=== PATIENT | female | born 1950 | race Caucasian/White ===

== ENCOUNTER 2021-07-05 09:59 | Outpatient (CLI) | payer MEDICARE, BC ==
[2021-07-05 11:49] LABS: Anion Gap 15 mmol/L (10-20); BUN (Urea Nitrogen) 12 mg/dL (9.8-20.1); Calc. Creatinine Clearance 0 mL/min (70-130); Calcium 9.8 mg/dL (7.8-10.44); Carbon Dioxide 21 mmol/L (23-31); Chloride 110 mmol/L (98-107); Glucose 103 mg/dL (80-115); Sodium 142 mmol/L (136-145)
[2021-07-05 18:51] LABS: SARS-CoV-2 PCR by NAA Not Detected (NotDetected)
== END 2021-07-05 10:00 | disposition home or self-care (01) ==
LOC: LABBT 09:59
PROVIDERS: ATTEND Urology
DX: Z01.818 Encounter for other preprocedural examination (principal); Z20.822 Contact with and (suspected) exposure to COVID-19
CPT/HCPCS: 80048; 93005; U0003; U0005; 93010

== ENCOUNTER 2021-07-06 22:20 | Emergency (ER) | payer MEDICARE, BC ==
[2021-07-07 02:27] LABS: Bilirubin Negative (Negative); Blood, Urine Negative (Negative); Clarity Clear (Clear); Glucose, Urine (Dipstick) Normal (Negative); Ketone, Urine Negative (Negative); Leukocyte Negative Leu/uL (Negative); Nitrite Negative (Negative); Protein, Urine (Dipstick) Negative (Neg-Trace); Specific Gravity, Urine 1.021 (1.002-1.036); Urobilinogen Normal mg/dL (Less than 2); pH, Urine 6.5 (5.0-9.0)
[2021-07-07 03:41] LABS: #Basophils 0.1 thou/uL (0.0-0.2); #Lymphocytes 1.1 thou/uL (1.20-3.40); #Monocytes 0.8 thou/uL (0.11-0.59); #Neutrophils 5.4 thou/uL (1.40-6.50); %Basophils 0.8 % (0.0-1.0); %Eosinophils 0.5 % (0.0-10.0); %Lymphocytes 14.7 % (21.0-51.0); %Monocytes 10.8 % (0.0-10.0); %Neutrophils 73.2 % (42.0-75.0); Hemoglobin 14.3 g/dL (12.0-16.0); Mean Corpuscular HGB CONC 33.8 g/dL (32.0-36.0); Mean Corpuscular Hemoglobin 32.1 pg (27.0-31.0); Mean Corpuscular Volume 94.9 fL (78.0-98.0); Mean Platelet Volume 9.9 fL (7.4-10.4); Platelet Count 235 thou/uL (130-400); RBC Distribution Width 11.5 % (11.5-14.5); Red Blood Cell (RBC) Count 4.47 mill/uL (4.20-5.40); White Blood Cell (WBC) Count 7.4 thou/uL (4.8-10.8)
[2021-07-07 03:49] LABS: ALT (SGPT) 20 U/L (8-55); AST (SGOT) 19 U/L (5-34); Albumin 4.5 g/dL (3.4-4.8); Alkaline Phosphatase 101 U/L (40-110); BUN (Urea Nitrogen) 13 mg/dL (9.8-20.1); Bilirubin, Total 0.4 mg/dL (0.2-1.2); Calc. Creatinine Clearance 0 mL/min (70-130); Calcium 10.1 mg/dL (7.8-10.44); Carbon Dioxide 21 mmol/L (23-31); Globulin 3.5 g/dL (2.4-3.5); Glucose 97 mg/dL (80-115); Lipase 26 U/L (8-78)
[2021-07-07 03:59] LABS: Anion Gap 15 mmol/L (10-20); Chloride 107 mmol/L (98-107); Potassium 4.1 mmol/L (3.5-5.1); Sodium 138 mmol/L (136-145)
[2021-07-07] MEDS ORDERED: Mag-Al 1200 mg/1200 mg/30 ML UDCUP ONE (06:46)
[2021-07-07] MEDS ORDERED: Lidocaine Viscous Sol 2% 15 ml UD Cup ONE (06:46)
[2021-07-07] MEDS ORDERED: Iopamidol 370 76% 100 ML VIAL ONE (09:46)
== END 2021-07-07 10:01 | disposition home or self-care (01) ==
LOC: ERS 22:20
DX: K44.9 Diaphragmatic hernia without obstruction or gangrene (principal); K21.9 Gastro-esophageal reflux disease without esophagitis; J45.909 Unspecified asthma, uncomplicated; Z79.899 Other long term (current) drug therapy
CPT/HCPCS: 36415; 74177; 80053; 81003; 83690; 85025; 87086; Q9967

== ENCOUNTER 2021-07-10 08:19 | Day surgery (SDC) | payer MEDICARE, BC ==
[2021-07-07 10:49] VITALS: BMI 35.0
[2021-07-10] MEDS ORDERED: ceFAZolin 2 GM/DEX 5% 100 ML BAG ONE (09:36)
[2021-07-10 10:33] LABS: Prothrombin Time 13.3 sec (12.0-14.7)
[2021-07-10 10:34] LABS: PTT 40.7 sec (22.9-36.1)
[2021-07-10] MEDS ORDERED: SUGAMMADEX SODIUM 200 MG/2 ML VIAL ONE (10:58)
[2021-07-10] MEDS ORDERED: Famotidine/PF 20 mg/2ml Vial ONE (10:58)
[2021-07-10] MEDS ORDERED: Fentanyl 100 MCG/2 ML VIAL ONE (10:58)
[2021-07-10] MEDS ORDERED: Lidocaine 1% PF 5 ML VIAL ONE (11:09)
[2021-07-10] MEDS ORDERED: Ondansetron PF 4 MG/2 ML Vial ONE (11:09)
[2021-07-10] MEDS ORDERED: Metoclopramide HCl 10 MG/2 ML VIAL ONE (11:09)
[2021-07-10] MEDS ORDERED: PROPOFOL 200 MG/20 ML VIAL ONE (11:09)
[2021-07-10] MEDS ORDERED: Succinylcholine 200 MG/10 ml SYRINGE FS ONE (11:09)
[2021-07-10] MEDS ORDERED: Promethazine HCl 25 MG/ML VIAL IVPB PRN (11:31)
[2021-07-10] MEDS ORDERED: Promethazine HCl 25 MG/ML VIAL IM PRN (11:31)
[2021-07-10] MEDS ORDERED: Ondansetron HCl/PF 4 MG/2 ML Vial IVP PRN (11:31)
[2021-07-10] MEDS ORDERED: Bicitra 30 ML UDCUP ONE (11:53)
[2021-07-10] MEDS ORDERED: Milk Of Magnesia 30 ML UDCUP PO SCH (12:45)
== END 2021-07-10 13:42 | disposition home or self-care (01) ==
LOC: SDC 08:19
PROVIDERS: ATTEND Urology
PROC: 0T7D8ZZ Dilation of Urethra, Via Natural or Artificial Opening Endoscopic (ICD-10-PCS; principal; 2021-07-10)
DX: N35.82 Other urethral stricture, female (principal); I10 Essential (primary) hypertension; I47.1 Supraventricular tachycardia; J45.909 Unspecified asthma, uncomplicated; K44.9 Diaphragmatic hernia without obstruction or gangrene; R25.1 Tremor, unspecified; E66.9 Obesity, unspecified; Z68.35 Body mass index [BMI] 35.0-35.9, adult; Z86.16 Personal history of COVID-19; Z79.2 Long term (current) use of antibiotics; Z79.899 Other long term (current) drug therapy; Z91.040 Latex allergy status
CPT/HCPCS: 85610; 85730; J2405; J2704; J2765; J3010; S0028

== ENCOUNTER 2022-08-02 10:54 | Outpatient (CLI) | payer MEDICARE, BC ==
[2022-08-02 12:08] LABS: #Monocytes 0.2 10x3/uL (0.0-1.1); #Neutrophils 9.1 10x3/uL (1.5-8.4); %Basophils 0.4 % (0.0-2.0); %Lymphocytes 4.6 % (18.0-47.0); %Monocytes 2.3 % (0.0-10.0); %Neutrophils 90.9 % (40.0-75.0); Hemoglobin 14.5 g/dL (12.0-15.5); Mean Corpuscular Hemoglobin 30.8 pg (27.0-33.0); Mean Corpuscular Volume 90.7 fl (81.6-98.3); Mean Platelet Volume 11.3 fl (7.4-10.4); Platelet Count 258 10x3/uL (150-450); RBC Distribution Width 13.1 % (11.5-14.5); Red Blood Cell (RBC) Count 4.71 10x6/uL (3.90-5.03)
[2022-08-02 12:25] LABS: Anion Gap 17 mmol/L (10-20); BUN (Urea Nitrogen) 14 mg/dL (9.8-20.1); Calc. Creatinine Clearance 0 mL/min (70-130); Calcium 9.6 mg/dL (7.8-10.44); Carbon Dioxide 20 mmol/L (23-31); Chloride 110 mmol/L (98-107); Estimated GFR 73; Glucose 127 mg/dL (83-110); Potassium 4.1 mmol/L (3.5-5.1); Sodium 143 mmol/L (136-145)
[2022-08-02 17:11] LABS: Hemoglobin A1c 5.3 % (4.0-6.0)
== END 2022-08-02 10:55 | disposition home or self-care (01) ==
LOC: LABBT 10:54
PROVIDERS: ATTEND Specialist
DX: Z01.818 Encounter for other preprocedural examination (principal); K44.9 Diaphragmatic hernia without obstruction or gangrene
CPT/HCPCS: 80048; 83036; 85025; 93005; 93010

== ENCOUNTER 2022-08-14 05:58 | Observation (INO) | payer MEDICARE, BC ==
[2022-08-13 13:20] VITALS: BMI 31.3
[2022-08-14] MEDS ORDERED: Ketorolac Tromethamine 30 MG/ML VIAL ONE ×2 (06:19→17:27)
[2022-08-14] MEDS ORDERED: Acetaminophen 500 MG TAB ONE (06:19)
[2022-08-14] MEDS ORDERED: Fentanyl 250 MCG/5 ML VIAL ONE (06:44)
[2022-08-14] MEDS ORDERED: Bupivacaine/Epinephrine 0.25% 30 ML VIAL ONE (07:10)
[2022-08-14] MEDS ORDERED: Promethazine HCl 25 MG/ML VIAL IM PRN ×2 (07:15→11:13)
[2022-08-14] MEDS ORDERED: HYDROmorphone 2 MG/ML VIAL SLOW IVP PRN (07:15)
[2022-08-14] MEDS ORDERED: Meperidine HCl/PF 25 MG/ML VIAL SLOW IVP PRN ×2 (07:15)
[2022-08-14] MEDS ORDERED: Ondansetron HCl/PF 4 MG/2 ML Vial IVP PRN (07:15)
[2022-08-14] MEDS ORDERED: Scopolamine 1.5 mg/72 hour Patch ONE (07:17)
[2022-08-14] MEDS ORDERED: Ipratropium/Albuterol 3 ML NEB ONE (07:17)
[2022-08-14] MEDS ORDERED: Albuterol HFA (OR) 200 PUFF INH ONE (07:19)
[2022-08-14] MEDS ORDERED: Sodium Chloride 0.9% 100 ML ONE (07:41)
[2022-08-14] MEDS ORDERED: CEFAZOLIN 2 GM VIAL ONE (07:41)
[2022-08-14] MEDS ORDERED: Ondansetron PF 4 MG/2 ML Vial ONE ×2 (07:56→14:34)
[2022-08-14] MEDS ORDERED: Rocuronium Bromide 10 MG/ML (10ML VIAL) ONE (07:56)
[2022-08-14] MEDS ORDERED: Succinylcholine Chloride 100 MG/5 ML SYRINGE FS ONE (07:56)
[2022-08-14] MEDS ORDERED: Lidocaine 1% PF 5 ML VIAL ONE (07:56)
[2022-08-14] MEDS ORDERED: NEOSTIGMINE 3 MG/3 ML SYR 3 MG/3 ML SYRINGE ONE (07:56)
[2022-08-14] MEDS ORDERED: PROPOFOL 200 MG/20 ML VIAL ONE (07:56)
[2022-08-14] MEDS ORDERED: diphenhydrAMINE 50 MG/ML VIAL ONE (07:56)
[2022-08-14] MEDS ORDERED: Glycopyrrolate 0.2 MG/ML 5 ML SYRINGE ONE (07:56)
[2022-08-14] MEDS ORDERED: Dexamethasone 20 MG/5 ML VIAL ONE (07:56)
[2022-08-14] MEDS ORDERED: Ipratropium/Albuterol 3 ML NEB NEB PRN ×2 (10:31→11:13)
[2022-08-14] MEDS ORDERED: Albuterol 200 PUFF (6.7GM INHALER) INH PRN (10:31)
[2022-08-14] MEDS ORDERED: Fentanyl 100 MCG/2 ML VIAL ONE (11:09)
[2022-08-14] MEDS ORDERED: Ondansetron PF 4 MG/2 ML Vial IVP PRN (11:13)
[2022-08-14] MEDS ORDERED: HYDROcodone/Acetaminophen 10/325 mg Tablet PO PRN (11:13)
[2022-08-14] MEDS ORDERED: Mag-Al 1200 mg/1200 mg/30 ML UDCUP PO PRN (11:13)
[2022-08-14] MEDS ORDERED: hydrALAZINE 20 MG/ML VIAL SLOW IVP PRN (11:13)
[2022-08-14] MEDS ORDERED: Calcium Carbonate 500 MG ChewTAB PO PRN (11:13)
[2022-08-14] MEDS ORDERED: Morphine 2 MG/ML VIAL SLOW IVP PRN (11:13)
[2022-08-14] MEDS ORDERED: Dextrose 5% in Water 1,000 ML IV PRN (11:13)
[2022-08-14] MEDS ORDERED: Morphine 4 MG/ML VIAL SLOW IVP PRN (11:13)
[2022-08-14] MEDS ORDERED: Dextrose 50% Abboject 50 ML SYRINGE SLOW IVP PRN (11:13)
[2022-08-14] MEDS: Ketorolac Tromethamine 30 MG/ML VIAL IVP SCH ×2 (17:29→17:30)
[2022-08-14] MEDS: Ipratropium/Albuterol 3 ML NEB NEB SCH ×2 (19:08→23:11)
[2022-08-14] MEDS: Budesonide 0.5 MG/2 ML NEB NEB SCH (19:09)
[2022-08-14] MEDS: Mometasone 100 MCG/PUFF (1 INHALER) INH SCH (19:09)
[2022-08-14] MEDS: D5 1/2 NS w/20 mEq KCL 1,000 ML IV SCH ×2 (21:00→21:01)
[2022-08-14] MEDS ORDERED: Nortriptyline HCl 25 MG CAP PO SCH (21:00)
[2022-08-14] MEDS: Famotidine 20 MG TAB PO SCH (21:01)
[2022-08-14] MEDS: Famotidine/PF 20 mg/2ml Vial SLOW IVP SCH (21:02)
[2022-08-15] MEDS: Ketorolac Tromethamine 30 MG/ML VIAL IVP SCH ×3 (05:51→14:18)
[2022-08-15 07:23] LABS: #Lymphocytes 0.5 thou/uL (1.20-3.40); #Neutrophils 13.7 thou/uL (1.40-6.50); %Eosinophils 0.1 % (0.0-10.0); %Lymphocytes 3.4 % (21.0-51.0); %Monocytes 6.7 % (0.0-10.0); %Neutrophils 89.9 % (42.0-75.0); Hemoglobin 14.5 g/dL (12.0-16.0); Mean Corpuscular Hemoglobin 31.5 pg (27.0-31.0); Mean Corpuscular Volume 98.3 fl (78.0-98.0); Mean Platelet Volume 9.3 fL (7.4-10.4); Platelet Count 226 10x3/uL (130-400); RBC Distribution Width 12.6 % (11.5-14.5); White Blood Cell (WBC) Count 15.2 10x3/uL (4.8-10.8)
[2022-08-15] MEDS: Ipratropium/Albuterol 3 ML NEB NEB SCH (07:29)
[2022-08-15] MEDS ORDERED: Linaclotide [Linzess] 145 MCG Capsule PO SCH (07:30)
[2022-08-15] MEDS: Budesonide 0.5 MG/2 ML NEB NEB SCH (07:33)
[2022-08-15] MEDS: Mometasone 100 MCG/PUFF (1 INHALER) INH SCH (07:34)
[2022-08-15 07:40] LABS: Anion Gap 14 mmol/L (10-20); BUN (Urea Nitrogen) 9 mg/dL (9.8-20.1); Calc. Creatinine Clearance 83 mL/min (70-130); Calcium 9.4 mg/dL (7.8-10.44); Carbon Dioxide 19 mmol/L (23-31); Chloride 109 mmol/L (98-107); Estimated GFR 81; Glucose 130 mg/dL (83-110); Potassium 4.4 mmol/L (3.5-5.1); Sodium 138 mmol/L (136-145)
[2022-08-15 08:40] VITALS: TEMP 98
[2022-08-15] MEDS ORDERED: Montelukast Sodium 10 mg Tablet PO SCH (09:00)
[2022-08-15] MEDS: Famotidine 20 MG TAB PO SCH (09:20)
[2022-08-15] MEDS: D5 1/2 NS w/20 mEq KCL 1,000 ML IV SCH (09:21)
[2022-08-15] MEDS: Famotidine/PF 20 mg/2ml Vial SLOW IVP SCH (09:21)
[2022-08-15 12:35] VITALS: BP 136/87
== END 2022-08-15 14:30 | disposition home or self-care (01) ==
LOC: SDC 05:58 → SURG A 18:34
PROVIDERS: ADMIT Specialist; ATTEND Specialist
PROC: 0BQT4ZZ Repair Diaphragm, Percutaneous Endoscopic Approach (ICD-10-PCS; principal; 2022-08-14)
PROC: 0DQ64ZZ Repair Stomach, Percutaneous Endoscopic Approach (ICD-10-PCS; 2022-08-14)
DX: K44.9 Diaphragmatic hernia without obstruction or gangrene (principal); K21.9 Gastro-esophageal reflux disease without esophagitis; N35.92 Unspecified urethral stricture, female; J45.909 Unspecified asthma, uncomplicated; I11.9 Hypertensive heart disease without heart failure; E66.01 Morbid (severe) obesity due to excess calories; Z68.31 Body mass index [BMI] 31.0-31.9, adult; Z79.899 Other long term (current) drug therapy; Z88.1 Allergy status to other antibiotic agents; Z91.040 Latex allergy status
CPT/HCPCS: 43281; 43659; 51701; 74018; 80048; 85025; 94640 ×3; 96374; 96376; C1713 ×2; C1776 ×2; G0378 ×2; 51798; J1100; J1200; J1885; J2405; J2704; J3010; J3480; J3490; J7620; J7626